=== PATIENT | female | born 2005 | race African-American/Black ===

== ENCOUNTER 2025-05-08 20:20 | Emergency (ER) | payer SELFPAY ==
--- NOTE | 2025-05-08 20:30 | W.ED.GENAD ---
Discharge Plan Disposition Patient Disposition: Home Discharge Details Clinical Impression: Mild concussion, Hyperglycemia due to type 2 diabetes mellitus, Elevated hemoglobin A1c Primary Care Provider: None,None ED Provider: Suzi Anne Discharge Instructions Instructions: Type 2 diabetes Additional Instructions: Please follow-up with the resources in your local area provided to you to help establish care with a primary care provider. [facility] and [facility] in [place] may be a good place to start. I have also placed a referral to our care management team, which can help you with resources and with establishing care with a primary care provider. Your A1c today was very elevated, it was 13.0. I strongly recommend that you do your best to obtain an inexpensive glucometer with test strips that you could afford and check your blood sugar regularly. Continue to use your sliding scale insulin as prescribed. I strongly recommend that you restart taking your metformin. Taking metformin with meals and starting at a low dose may be helpful to help manage the nausea associated with it. Stay well-hydrated, as this can help decrease nausea due to metformin use. Gradually increase the dose as tolerated. Please be sure to eat smaller more frequent meals at a time. Deisy and peppermint may also be helpful for nausea. Return to emergency care if you develop new severe headaches, vision changes, episodes of passing out, chest pains, difficulty breathing, severe abdominal pain, uncontrollable vomiting, or if you are very worried and need to be rechecked immediately. Referrals: Care Management [Provider Group] HPI General Date/Time Provider Initiated Documentation: 05/08/25 20:29. HPI Narrative: Evi is a 19-year-old female presents to the emergency department today for evaluation of head injury. 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 [place] sluggish due to recovering from a cold. Hit head on a shelf or box. Initial impact caused no significant pain, but experienced dizziness and photophobia 45 minutes later. Took a break around 1630 hours, experienced a brief nosebleed that was able to be controlled after she sneezed, headache, and worsening symptoms. Unsure if symptoms are related to head injury. [place] overwhelmed by bright lights, sat down behind the counter. No loss of consciousness. Referred to ED by employer's [employer]. Currently reports mild headache, no dizziness or vision problems. No neck pain, extremity weakness, vomiting, nausea, abdominal pain, chest pain, or dyspnea. Regular bowel movements. No history of kidney disease, heart disease, sickle cell disease, or blood disorders. No primary care physician in [place]; last visit a year ago. Diabetes managed with Humalog. Ran out of test strips, not checking blood sugar levels, says it has been a long time since she has been able to afford her Freestyle [place] Lite test strips. Using sliding scale from old [employer], counting carbohydrates. Has some Humalog pens left. Has been prescribed metformin, however has not been taking it due to nausea. Last A1c was around 8. She does not have a local PCP, lives in [place]. Has Medicaid, but it [place] of [place] so she is not sure if it applies here. Asthma well-controlled, no attacks in years. Uses albuterol inhaler as needed. PMH significant for: T2DM, asthma. Denies history of heart disease, kidney dysfunction, bleeding disorders, anticoagulation. Exam Narrative Exam Narrative: General Appearance: Normal. Patient alert and oriented, no acute distress Vital signs: Within normal limits. Hypertension noted HEENT: Head: No visible bleeding or swelling. No scalp tenderness/boggy spots. No raccoon eyes or [place] sign. Eyes: Pupils equal, round, reactive to light. EOMI. ENT: Oropharynx clear. No nasal bleeding. Neck: No C-spine tenderness/step-off/deformity, full painless range of motion to neck Respiratory: Easy work of breathing, lungs clear bilaterally. Cardiac: Regular rate and rhythm, normal heart sounds Back, Musculoskeletal: Full ROM in all extremities. No weakness. Neurological: Alert and oriented x3. Cranial nerves II-XII intact. No motor or sensory deficits, 5/5 muscle strength upper and lower extremities. Normal Romberg, finger finger, finger-nose, rapid alternating movements, gait, tandem gait. Skin: Warm and dry, no rash. Psychiatric: Normal. Medical Decision Making Initial Assessment: 19-year-old female with minor head injury, dizziness, and nosebleed. History and presentation consistent with mild concussion, no red flags concerning for ICH. No CT scan based on Nexus criteria indicated. I do have significant concern about her diabetes control, as she has not been taking her oral antihyperglycemic's and has not been checking her blood sugars at home. Will obtain labs to rule out DKA, significant electrolyte abnormalities, target endorgan damage, or other complications of poorly controlled T2DM. ED Course: - Blood work conducted - EKG performed - Urine sample obtained I independently interpreted the following tests: CBC unremarkable. CMP notable for hyperglycemia, glucose 401. Corrected sodium 136. A1c very elevated at greater than 13. UA unremarkable, other than greater than 1000 glucose, not consistent with infection. Overall workup today reassuring, though patient has very poorly controlled diabetes. I did talk with her extensively about importance of checking blood sugar, she currently has a very expensive glucometer and cannot afford the test strips, advised her that she can pick up operator an inexpensive glucometer with test trips that are generic for approximately $20, she says that this is reasonable for her and something that she thinks she can do. Reviewed the risks associated with poorly controlled diabetes, including cardiovascular disease, kidney dysfunction, and stroke. She was provided a list of primary care providers and resources in her local area. A referral was also placed to care management. She is agreeable with plan of care, says that she intends to follow-up with [facility] clinic. I did advise her to restart the metformin, provided guidance on how to reduce nausea associated with this medication. Clinical Impression: - Mild concussion - Diabetes mellitus, very poorly controlled Patient Education: Discussed dry weather causing nosebleeds. Advised on diabetes monitoring and follow-up care. Patient consented to the use of REJI PFSH All Active Problems (Updated 05/08/25 @ 22:14 by Suzi Stanford) Elevated hemoglobin A1c (Acute) Hyperglycemia due to type 2 diabetes mellitus (Acute) Mild concussion (Acute) Social History Smoking/Tobacco Use Status: Never Smoking risk assessment performed?: Yes Alcohol Intake: never Drug use: Never Substance use type: does not use
[2025-05-08 20:33] VITALS: BP 164/98; PULSE 88; RESP 18; TEMP 36.6; O2SAT 98
[2025-05-08 21:19] LABS: Glucose >=1000 mg/dL (Negative)
[2025-05-08 21:24] LABS: Abs Immature Grans 0.01 10^3/uL (0.0-0.06); HCT 45.7 % (36.0-46.0); HGB 15.8 g/dL (11.2-15.7); Immature Grans % 0.1 %; MCH 27.0 pg (27.0-33.0); MCHC 34.6 % (32.0-36.0); MCV 78 fL (80-95); MPV 10.8 fL (8.0-11.0); Platelet Count 259 10^3/uL (130-400); RBC 5.86 10^6/uL (3.93-5.22); RDW 11.5 % (11.7-14.6); RDW-SD 31.9 fL; WBC 7.22 10^3/uL (4.4-10.8)
[2025-05-08 21:34] LABS: C & S Indicated? No; RBC 0-2 HPF (0-2); WBC Negative HPF (0-5)
[2025-05-08 21:39] LABS: Anion Gap 8.1 mmol/L (3-11); BUN 8 mg/dL (7-18); CO2 28.9 mmol/L (21.0-32.0); Calcium 9.7 mg/dL (8.5-10.1); Chloride 92 mmol/L (98-107); Estimated GFR 107.44 (mL/min/1.73m2); Glucose 401 mg/dL (74-106); Potassium 3.8 mmol/L (3.5-5.1); Sodium 129 mmol/L (136-145)
[2025-05-08 21:56] LABS: Hemoglobin A1C > 13.0 % (<5.7)
[2025-05-08 22:18] VITALS: BP 155/78; PULSE 82; RESP 18; O2SAT 98
== END 2025-05-08 22:20 | disposition home or self-care (01) ==
LOC: ER 22:22
PROVIDERS: Emergency Provider Nurse Practitioner Family
DX: S06.0X0A Concussion without loss of consciousness, initial encounter (principal); W22.8XXA Striking against or struck by other objects, initial encounter; Y99.0 Civilian activity done for income or pay; E11.65 Type 2 diabetes mellitus with hyperglycemia; R73.09 Other abnormal glucose
CPT/HCPCS: 36415; 80048; 82805; 99282; 81003; 81015; 83036; 85025; 99283